=== PATIENT | female | born 1945 ===

== ENCOUNTER 2019-01-31 13:08 | Inpatient (IN) | payer SELFPAY ==
--- NOTE | 2019-01-31 13:17 | Event Note ---
ED Screening Note Date of service: 01/31/19 Time: 13:13 ED Screening Note: This is a 73 y.o. F. that presents to the ER for elevated blood pressure. Patient was at a clinic for medication refills. Patient states the clinic sent her to the ER because her blood pressure is elevated. Admits to blurry vision. Patient off blood pressure medication for several weeks. This initial assessment/diagnostic orders/clinical plan/treatment(s) is/are subject to change based on patients health status, clinical progression and re- assessment by fellow clinical providers in the ED. Further treatment and workup at subsequent clinical providers discretion. Patient/guardian urged not to elope from the ED as their condition may be serious if not clinically assessed and managed. Initial orders include: Labs
[2019-01-31 13:52] LABS: Basophils # (Auto) 0.1 K/mm3 (0.0-0.1); Eosinophils # (Auto) 0.2 K/mm3 (0.0-0.4); Eosinophils % (Auto) 2.2 % (0.0-4.3); Hematocrit 39.1 % (30.3-42.9); Hemoglobin 13.1 gm/dl (10.1-14.3); Lymphocytes # (Auto) 2.8 K/mm3 (1.2-5.4); Lymphocytes % (Auto) 28.6 % (13.4-35.0); Mean Corpuscular HGB Conc 33 % (30-34); Mean Corpuscular Volume 95 fl (79-97); Monocytes # (Auto) 0.7 K/mm3 (0.0-0.8); Monocytes % (Auto) 7.5 % (0.0-7.3); Platelet Count 196 K/mm3 (140-440); Red Blood Count 4.12 M/mm3 (3.65-5.03); Red Cell Distribution Width 13.9 % (13.2-15.2)
[2019-01-31 13:58] LABS: Calcium 9.1 mg/dL (8.4-10.2)
--- NOTE | 2019-01-31 17:13 | XRay Report ---
CHEST 2 VIEWS INDICATION / CLINICAL INFORMATION: chest pain. Dizziness COMPARISON: None available. FINDINGS: SUPPORT DEVICES: None. HEART / MEDIASTINUM: No significant abnormality. LUNGS / PLEURA: No significant pulmonary or pleural abnormality. No pneumothorax. ADDITIONAL FINDINGS: No significant additional findings. IMPRESSION: 1. No acute findings. Signer Name: Fabio Cobb MD Signed: 01/31/2019 5:09 PM Workstation Name: [id number]
[2019-01-31] MEDS ORDERED: APRESOLINE IV ONE (19:10)
--- NOTE | 2019-01-31 19:15 | Emergency Department Report ---
ED Dizziness HPI - General Chief Complaint: Dizziness Stated Complaint: HBP Time Seen by Provider: 01/31/19 13:13 Source: patient Mode of arrival: Ambulatory Limitations: No Limitations - History of Present Illness Initial Comments: 73-year-old female with history of hypertension presents to ED with elevated blood pressure and dizziness. Patient states she has been compliant with her blood pressure medications, clonidine and furosemide. Patient reports she took her last pill today. Went to doctor's appointment today, and reported dizziness and also chest pressure. Patient was advised to come to the ER for further evaluation. Patient denies headache, reports some blurred vision. States chest pain is currently improved. Reports nausea, no vomiting. Denies shortness of breath. Denies any lower extremity swelling. Patient denies history of CHF, unsure why she is taking Lasix. Complaint: dizziness, lightheadedness -: This morning Timing: intermittent Description: lightheadedness Severity: moderate Improves With: nothing Worsens With: nothing Associated Symptoms: chest pain - Related Data Allergies Allergy/AdvReac Type Severity Reaction Status Date / Time No Known Allergies Allergy Verified 01/31/19 20:29 ED Review of Systems ROS: Stated complaint: HBP Other details as noted in HPI Comment: All other systems reviewed and negative Eyes: other (reports blurred vision) Respiratory: denies: shortness of breath Cardiovascular: chest pain Gastrointestinal: nausea. denies: vomiting Musculoskeletal: other (denies leg pain or swelling) Neurological: other (reports dizziness). denies: headache ED Past Medical Hx - Social History Smoking Status: Never Smoker Substance Use Type: Alcohol ED Physical Exam - General Limitations: No Limitations General appearance: alert, in no apparent distress - Head Head exam: Present: atraumatic, normocephalic - Eye Eye exam: Present: normal appearance, PERRL, EOMI - ENT ENT exam: Present: mucous membranes moist - Neck Neck exam: Present: normal inspection, full ROM - Respiratory Respiratory exam: Present: normal lung sounds bilaterally. Absent: respiratory distress - Cardiovascular Cardiovascular Exam: Present: regular rate, normal rhythm - GI/Abdominal GI/Abdominal exam: Present: soft. Absent: distended, tenderness - Extremities Exam Extremities exam: Present: normal inspection - Neurological Exam Neurological exam: Present: alert, oriented X3, CN II-XII intact. Absent: motor sensory deficit - Psychiatric Psychiatric exam: Present: normal affect, normal mood - Skin Skin exam: Present: warm, dry, intact, normal color ED Course Vital Signs 01/31/19 01/31/19 01/31/19 13:13 16:23 18:53 Temperature 98.3 F 97.4 F L 98.6 F Pulse Rate 73 70 71 Respiratory 18 22 18 Rate Blood Pressure 240/82 239/90 Blood Pressure 258/97 [Left] O2 Sat by Pulse 100 100 Oximetry 01/31/19 01/31/19 01/31/19 19:19 19:30 20:00 Temperature Pulse Rate 88 69 89 Respiratory 17 21 19 Rate Blood Pressure 259/92 168/62 Blood Pressure [Left] O2 Sat by Pulse Oximetry 01/31/19 01/31/19 01/31/19 20:30 21:00 21:30 Temperature Pulse Rate 85 83 83 Respiratory 17 22 17 Rate Blood Pressure 176/60 176/58 177/59 Blood Pressure [Left] O2 Sat by Pulse Oximetry ED Medical Decision Making - Lab Data Result diagrams: 01/31/19 13:25 01/31/19 13:25 - EKG Data -: EKG Interpreted by [place] EKG shows normal: sinus rhythm, axis, intervals, QRS complexes Rate: normal - EKG Data Interpretation: nonspecific ST-T wave serge - Radiology Data Radiology results: report reviewed, image reviewed - Medical Decision Making 73-year-old female with uncontrolled hypertension, dizzines and chest pain. Hydralazine given, BP improved. EKG shows nonspecific changes, troponin normal. CT Head normal. Will admit to hospitalist for further management. - Differential Diagnosis ACS, CVA, HTN emergency Critical Care Time: Yes Critical care time in (mins) excluding proc time.: 35 Critical care attestation.: If time is entered above; I have spent that time in minutes in the direct care of this critically ill patient, excluding procedure time. Critical Care Time: 35 minutes ED Disposition Clinical Impression: Acute chest pain, Hypertensive emergency Disposition: DC-[id number] OP ADMIT IP TO THIS HOSP Is pt being admited?: Yes Condition: Stable Time of Disposition: 20:17
--- NOTE | 2019-01-31 19:38 | Cat Scan Report ---
CT head without contrast CLINICAL HISTORY: Dizziness FINDINGS: There are small foci of calcification within the basal ganglia. The brain otherwise appears to demonstrate appropriate attenuation for age. There is no clear CT evidence of acute intracranial hemorrhage or significant mass effect. There is mild cerebral atrophy. The ventricular system is rosmery espondingly appropriate in size and configuration. The visualized paranasal sinuses are clear. All CT scans at this location are performed using the CT dose reduction for [employer] by means of automated exp osure control. IMPRESSION: There is no CT evidence of acute intracranial process. Signer Name: Wili Herrmann MD Signed: 01/31/2019 7:33 PM Workstation Name: [id number]
[2019-01-31] MEDS ORDERED: ASPIRIN PO ONE (20:16)
[2019-01-31] MEDS ORDERED: MORPHINE IV PRN (20:19)
[2019-01-31] MEDS ORDERED: SODIUM CHLORIDE FLUSH SYRINGE 10 ML IV PRN ×2 (20:19→20:24)
[2019-01-31] MEDS ORDERED: DILAUDID IV PRN (20:19)
[2019-01-31] MEDS ORDERED: ZOFRAN IV ONE (20:19)
[2019-01-31] MEDS ORDERED: ZOFRAN IV PRN (20:19)
[2019-01-31] MEDS ORDERED: TYLENOL PO PRN (20:19)
[2019-01-31] MEDS ORDERED: NORVASC PO ONE (20:22)
[2019-01-31] MEDS ORDERED: NITROSTAT SL PRN (20:24)
[2019-01-31 21:30] LABS: Chol/HDL Ratio 2.95 %
[2019-01-31] MEDS: SODIUM CHLORIDE FLUSH SYRINGE 10 ML IV SCH (22:10)
--- NOTE | 2019-01-31 22:16 | History and Physical Report ---
<DELVIN FRENCH - Last Filed: 01/31/19 22:16> History of Present Illness Date of examination: 01/31/19 Date of admission: 01/31/19 20:19 Chief complaint: Hypertensive urgency, dizziness, blurred vision, and chest pain History of present illness: 73-year-old Macanese-speaking female with history of hypertension presents to [facility] ED as a referral from her PCP for elevated blood pressure. Patient's daughter is present at bedside. Patient requested that her daughter interprets and assist in providing history. Patient went to her PCP this morning and with complaints of chest pressure and dizziness. She was found to have a systolic b lood pressure greater than 200 and referred to ED for further evaluation and treatment. On presentation to ED patient was found to be in hypertensive urgency with BP 240/82. She was given IV antihypertensive and was responsive. Patient complains of chest pain which she describes as chest pressure it is substernal with radiation to back. She rates it 8/10. Her chest pain was associated with nausea. Admits to: Lightheadedness, dizziness, blurred vision, nausea, emesis 1 Denies: Diarrhea, fever, headache, cough, hemoptysis, hematemesis, or gait dysfunction Past History Past Medical History: hypertension Past Surgical History: No surgical history Social history: lives with family Family history: no significant family history Medications and Allergies Allergies Allergy/AdvReac Type Severity Reaction Status Date / Time No Known Allergies Allergy Verified 01/31/19 20:29 Active Meds: Active Medications Acetaminophen (Tylenol) 650 mg PO Q4H PRN PRN Reason: Pain MILD(1-3)/Fever >100.5/MARQUEZ Aspirin (Baby Aspirin) 81 mg PO QDAY [facility] Atorvastatin Calcium (Lipitor) 20 mg PO QHS KAYLEE Clonidine HCl (Catapres) 0.2 mg PO DAILY [facility] Docusate Sodium (Colace) 100 mg PO BID [facility] Enoxaparin Sodium (Lovenox) 40 mg SUB-Q QDAY [facility] Hydralazine HCl (Apresoline) 10 mg IV Q4HR PRN PRN Reason: Blood Pressure Hydromorphone HCl (Dilaudid) 0.5 mg IV Q3H PRN PRN Reason: Pain , Severe (7-10) Morphine Sulfate (Morphine) 2 mg IV Q4H PRN PRN Reason: Pain, Moderate (4-6) Nitroglycerin (Nitrostat) 0.4 mg SL Q5M PRN PRN Reason: Chest Pain Ondansetron HCl (Zofran) 4 mg IV Q8H PRN PRN Reason: Nausea And Vomiting Sodium Chloride (Sodium Chloride Flush Syringe 10 Ml) 10 ml IV BID KAYLEE Sodium Chloride (Sodium Chloride Flush Syringe 10 Ml) 10 ml IV PRN PRN PRN Reason: LINE FLUSH Sodium Chloride (Sodium Chloride Flush Syringe 10 Ml) 10 ml IV PRN PRN PRN Reason: LINE FLUSH Review of Systems All systems: negative Eyes: bilateral: blurred vision Cardiovascular: chest pain, lightheadedness Gastrointestinal: nausea Neurological: other (dizziness) Exam - Physical Exam Narrative exam: Physical exam General appearance: Present: No acute distress, alert and oriented 3, Macanese- speaking, well-developed, well-nourished, older adult female - EENT Eyes: Present: PERRL, EOM ENT: hearing intact, normal dentition - Neck Neck: Present: supple, normal ROM - Respiratory Respiratory effort: Non-labored Respiratory: CTA bilaterally - Cardiovascular Heart rate: 73 (bpm) Rhythm: ST Heart Sounds: Present: S1 & S2. Absent: rub, click - Extremities Extremities: no ischemia, pulses intact - Peripheral Assessment Peripheral Pulses: within normal limits - Abdominal General gastrointestinal: soft, non-tender, normal bowel sounds - Integumentary Integumentary: Present: warm, dry - Musculoskeletal Musculoskeletal: Normal gait -Neurological Neurological: CN II-XII grossly intact - Psychiatric Psychiatric: cooperative - Constitutional Vitals: Temp Pulse Resp BP Pulse Ox 98.6 F 83 17 177/59 100 01/31/19 18:53 01/31/19 21:30 01/31/19 21:30 01/31/19 21:30 01/31/19 18:53 Results - Labs CBC & Chem 7: 01/31/19 13:25 01/31/19 13:25 Labs: Laboratory Last Values WBC 9.9 K/mm3 (4.5-11.0) 01/31/19 13:25 RBC 4.12 M/mm3 (3.65-5.03) 01/31/19 13:25 Hgb 13.1 gm/dl (10.1-14.3) 01/31/19 13:25 Hct 39.1 % (30.3-42.9) 01/31/19 13:25 MCV 95 fl (79-97) 01/31/19 13:25 MCH 32 pg (28-32) 01/31/19 13:25 MCHC 33 % (30-34) 01/31/19 13:25 RDW 13.9 % (13.2-15.2) 01/31/19 13:25 Plt Count 196 K/mm3 (140-440) 01/31/19 13:25 Lymph % (Auto) 28.6 % (13.4-35.0) 01/31/19 13:25 [place] % (Auto) 7.5 % (0.0-7.3) H 01/31/19 13:25 Eos % (Auto) 2.2 % (0.0-4.3) 01/31/19 13:25 Baso % (Auto) 1.0 % (0.0-1.8) 01/31/19 13:25 Lymph # 2.8 K/mm3 (1.2-5.4) 01/31/19 13:25 [place] # 0.7 K/mm3 (0.0-0.8) 01/31/19 13:25 Eos # 0.2 K/mm3 (0.0-0.4) 01/31/19 13:25 Baso # 0.1 K/mm3 (0.0-0.1) 01/31/19 13:25 Seg Neutrophils % 60.7 % (40.0-70.0) 01/31/19 13:25 Seg Neutrophils # 6.0 K/mm3 (1.8-7.7) 01/31/19 13:25 Sodium 141 mmol/L (137-145) 01/31/19 13:25 Potassium 4.1 mmol/L (3.6-5.0) 01/31/19 13:25 Chloride 102.4 mmol/L (98-107) 01/31/19 13:25 Carbon Dioxide 27 mmol/L (22-30) 01/31/19 13:25 16 mmol/L 01/31/19 13:25 BUN 18 mg/dL (7-17) H 01/31/19 13:25 1.0 mg/dL (0.7-1.2) 09/13/19 13:25 Estimated GFR 55 ml/min 01/31/19 13:25 18 % 01/31/19 13:25 Glucose 96 mg/dL (65-100) 01/31/19 13:25 Calcium 9.1 mg/dL (8.4-10.2) 01/31/19 13:25 < 0.010 ng/mL (0.00-0.029) 01/31/19 19:28 Triglycerides 150 mg/dL (2-149) H 01/31/19 20:28 Cholesterol 216 mg/dL (50-199) H 01/31/19 20:28 141 mg/dL (50-130) H 01/31/19 20:28 73 mg/dL (40-59) H 01/31/19 20:28 2.95 % 01/31/19 20:28 - Imaging and Cardiology Imaging and Cardiology: CT Head: FINDINGS: There are small foci of calcification within the basal ganglia. The brain otherwise appears to demonstrate appropriate attenuation for age. There is no clear CT evidence of acute intracranial hemorrhage or significant mass effect. There is mild cerebral atrophy. The ventricular system is correspondingly appropriate in size and configuration. The visualized paranasal sinuses are clear. All CT scans at this location are performed using the CT dose reduction for [employer] by means of automated exposure control. IMPRESSION: There is no CT evidence of acute intracranial process. CXR: FINDINGS: SUPPORT DEVICES: None. HEART / MEDIASTINUM: No significant abnormality. LUNGS / PLEURA: No significant pulmonary or pleural abnormality. No pneumothorax. ADDITIONAL FINDINGS: No significant additional findings. IMPRESSION: 1. No acute findings. Assessment and Plan Assessment and plan: 73-year-old Macanese-speaking female with history of hypertension presents to [facility] ED as a referral from her PCP for elevated blood pressure. Hypertensive urgency -BP on admission 240/82 -Hx Hypertension compliant with meds -Continue to monitor BP -Continue clonidine 0.2 mg daily -IV hydralazine when necessary Acute Chest Pain -Likely secondary to coronary vasospasm -Initiate chest pain protocol -Continuous telemetry monitoring -Continue supportive care -Pain mgmt -Treadmill stress test pending -Troponin negative 1 x 1, will continue to trend -Start ASA and Statin - Will consult cardiology if stress test positive HLD -Total cholesterol 216, LDL 141 -On Statin -Low fat diet DVT PPX -On Lovenox Advance Directives: No VTE prophylaxis?: Chemical Plan of care discussed with patient/family: Yes <TAVO HWANG - Last Filed: 02/01/19 06:12> History of Present Illness Date of admission: 01/31/19 20:19 Medications and Allergies Active Meds: Active Medications Acetaminophen (Tylenol) 650 mg PO Q4H PRN PRN Reason: Pain MILD(1-3)/Fever >100.5/MARQUEZ Aspirin (Baby Aspirin) 81 mg PO QDAY [facility] Atorvastatin Calcium (Lipitor) 20 mg PO QHS [facility] Last Admin: 02/01/19 00:49 Dose: 20 mg Documented by: Clonidine HCl (Catapres) 0.2 mg PO DAILY [facility] Docusate Sodium (Colace) 100 mg PO BID [facility] Last Admin: 02/01/19 00:50 Dose: 100 mg Documented by: Enoxaparin Sodium (Lovenox) 40 mg SUB-Q QDAY [facility] Hydralazine HCl (Apresoline) 10 mg IV Q4HR PRN PRN Reason: Blood Pressure Last Admin: 01/31/19 22:43 Dose: 10 mg Documented by: Hydromorphone HCl (Dilaudid) 0.5 mg IV Q3H PRN PRN Reason: Pain , Severe (7-10) Morphine Sulfate (Morphine) 2 mg IV Q4H PRN PRN Reason: Pain, Moderate (4-6) Last Admin: 01/31/19 23:12 Dose: 2 mg Documented by: Nitroglycerin (Nitrostat) 0.4 mg SL Q5M PRN PRN Reason: Chest Pain Ondansetron HCl (Zofran) 4 mg IV Q8H PRN PRN Reason: Nausea And Vomiting Last Admin: 01/31/19 23:12 Dose: 4 mg Documented by: Sodium Chloride (Sodium Chloride Flush Syringe 10 Ml) 10 ml IV BID [facility] Last Admin: 01/31/19 22:10 Dose: 10 ml Documented by: Sodium Chloride (Sodium Chloride Flush Syringe 10 Ml) 10 ml IV PRN PRN PRN Reason: LINE FLUSH Sodium Chloride (Sodium Chloride Flush Syringe 10 Ml) 10 ml IV PRN PRN PRN Reason: LINE FLUSH Exam - Constitutional Vitals: Temp Pulse Resp BP Pulse Ox 99.0 F 85 16 179/76 96 02/01/19 05:03 02/01/19 05:02 02/01/19 05:02 02/01/19 05:02 02/01/19 05:02 Results - Labs CBC & Chem 7: 02/01/19 03:58 02/01/19 03:58 Labs: Laboratory Last Values WBC 11.4 K/mm3 (4.5-11.0) H 02/01/19 03:58 RBC 4.18 M/mm3 (3.65-5.03) 02/01/19 03:58 Hgb 12.9 gm/dl (10.1-14.3) 02/01/19 03:58 Hct 39.4 % (30.3-42.9) 02/01/19 03:58 MCV 94 fl (79-97) 02/01/19 03:58 MCH 31 pg (28-32) 02/01/19 03:58 MCHC 33 % (30-34) 02/01/19 03:58 RDW 13.6 % (13.2-15.2) 02/01/19 03:58 Plt Count 211 K/mm3 (140-440) 02/01/19 03:58 Lymph % (Auto) 14.3 % (13.4-35.0) 02/01/19 03:58 Fre[place] % (Auto) 3.2 % (0.0-7.3) 02/01/19 03:58 Eos % (Auto) 0.0 % (0.0-4.3) 02/01/19 03:58 Baso % (Auto) 0.5 % (0.0-1.8) 02/01/19 03:58 Lymph # 1.6 K/mm3 (1.2-5.4) 02/01/19 03:58 [place] # 0.4 K/mm3 (0.0-0.8) 02/01/19 03:58 Eos # 0.0 K/mm3 (0.0-0.4) 02/01/19 03:58 Baso # 0.1 K/mm3 (0.0-0.1) 02/01/19 03:58 Seg Neutrophils % 82.0 % (40.0-70.0) H 02/01/19 03:58 Seg Neutrophils # 9.3 K/mm3 (1.8-7.7) H 02/01/19 03:58 Sodium 140 mmol/L (137-145) 02/01/19 03:58 Potassium 5.3 mmol/L (3.6-5.0) H D 02/01/19 03:58 Chloride 101.8 mmol/L (98-107) 02/01/19 03:58 Carbon Dioxide 25 mmol/L (22-30) 02/01/19 03:58 19 mmol/L 02/01/19 03:58 BUN 17 mg/dL (7-17) 02/01/19 03:58 0.9 mg/dL (0.7-1.2) 02/01/19 03:58 Estimated GFR > 60 ml/min 02/01/19 03:58 19 % 02/01/19 03:58 Glucose 124 mg/dL (65-100) H 02/01/19 03:58 Calcium 9.4 mg/dL (8.4-10.2) 02/01/19 03:58 < 0.010 ng/mL (0.00-0.029) 02/01/19 03:58 Triglycerides 150 mg/dL (2-149) H 01/31/19 20:28 Cholesterol 216 mg/dL (50-199) H 01/31/19 20:28 141 mg/dL (50-130) H 01/31/19 20:28 73 mg/dL (40-59) H 01/31/19 20:28 2.95 % 01/31/19 20:28 Assessment and Plan Assessment and plan: patient seen and examined. 73 year old woman with hypertension, compliant with medications was sent from PMD'd office for evaluation. She developed chest pain in the ER. Agree with plan as stated above
[2019-01-31] MEDS ORDERED: APRESOLINE ONE (22:26)
[2019-01-31] MEDS: APRESOLINE IV PRN (22:43)
[2019-02-01] MEDS: COLACE PO SCH ×3 (00:50→21:10)
[2019-02-01 04:51] LABS: Basophils # (Auto) 0.1 K/mm3 (0.0-0.1); Basophils % (Auto) 0.5 % (0.0-1.8); Hematocrit 39.4 % (30.3-42.9); Hemoglobin 12.9 gm/dl (10.1-14.3); Lymphocytes # (Auto) 1.6 K/mm3 (1.2-5.4); Lymphocytes % (Auto) 14.3 % (13.4-35.0); Mean Corpuscular HGB Conc 33 % (30-34); Mean Corpuscular Volume 94 fl (79-97); Monocytes # (Auto) 0.4 K/mm3 (0.0-0.8); Monocytes % (Auto) 3.2 % (0.0-7.3); Platelet Count 211 K/mm3 (140-440); Red Blood Count 4.18 M/mm3 (3.65-5.03); Red Cell Distribution Width 13.6 % (13.2-15.2)
[2019-02-01 05:14] LABS: BUN/Creatinine Ratio 19; Blood Urea Nitrogen 17 mg/dL (7-17); Calcium 9.4 mg/dL (8.4-10.2); Hemolysis Index 8
[2019-02-01] MEDS ORDERED: KIONEX PO ONE (06:43)
[2019-02-01] MEDS ORDERED: LEXISCAN IV ONE ×2 (07:55→08:09)
[2019-02-01] MEDS: APRESOLINE IV PRN (08:29)
--- NOTE | 2019-02-01 09:38 | Progress Note ---
Assessment and Plan Assessment and plan: 73-year-old Wolof-speaking female with history of hypertension presents to [facility] ED as a referral from her PCP for elevated blood pressure. 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 Cardiology evaluation and recommendations noted and appreciated The patient had stress test pending report Chest x-ray negative, continue current cardiac medications --Dyslipidemia ;Continue statin, low cholesterol diet, exercise as tolerated --DVT PPX; On Lovenox Closely monitor the patient and adjust management as needed Follow stress test report, monitor blood pressures If stable by discharge the patient tomorrow Closely observe and monitor blood pressures overnight History Interval history: Patient seen and examined medical records reviewed Admitted with hypertensive emergency and chest pain Evaluated by cardiology, patient underwent stress test awaiting report Patient feels slightly better, Blood pressures remain uncontrolled Alert awake oriented 3 Vital signs reviewed Hospitalist Physical - Constitutional Vitals: Temp Pulse Resp BP Pulse Ox 98.5 F 82 14 204/72 97 02/01/19 08:18 02/01/19 08:29 02/01/19 08:18 02/01/19 08:29 02/01/19 08:18 General appearance: Present: no acute distress, well-nourished - EENT Eyes: Present: PERRL, EOM intact - Neck Neck: Present: supple, normal ROM - Respiratory Respiratory effort: normal Respiratory: negative: rales, rhonchi, wheezing - Cardiovascular Rhythm: regular Heart Sounds: Present: S1 & S2 - Extremities Extremities: no ischemia, No edema - Abdominal General gastrointestinal: soft, non-tender, non-distended, normal bowel sounds - Integumentary Integumentary: Present: clear, warm - Psychiatric Psychiatric: appropriate mood/affect, cooperative - Neurologic Neurologic: CNII-XII intact, moves all extremities Results - Labs CBC & Chem 7: 02/01/19 03:58 02/01/19 03:58 Labs: Laboratory Last Values WBC 11.4 K/mm3 (4.5-11.0) H 02/01/19 03:58 RBC 4.18 M/mm3 (3.65-5.03) 02/01/19 03:58 Hgb 12.9 gm/dl (10.1-14.3) 02/01/19 03:58 Hct 39.4 % (30.3-42.9) 02/01/19 03:58 MCV 94 fl (79-97) 02/01/19 03:58 MCH 31 pg (28-32) 02/01/19 03:58 MCHC 33 % (30-34) 02/01/19 03:58 RDW 13.6 % (13.2-15.2) 02/01/19 03:58 Plt Count 211 K/mm3 (140-440) 02/01/19 03:58 Lymph % (Auto) 14.3 % (13.4-35.0) 02/01/19 03:58 [place] % (Auto) 3.2 % (0.0-7.3) 02/01/19 03:58 Eos % (Auto) 0.0 % (0.0-4.3) 02/01/19 03:58 Baso % (Auto) 0.5 % (0.0-1.8) 02/01/19 03:58 Lymph # 1.6 K/mm3 (1.2-5.4) 02/01/19 03:58 [place] # 0.4 K/mm3 (0.0-0.8) 02/01/19 03:58 Eos # 0.0 K/mm3 (0.0-0.4) 02/01/19 03:58 Baso # 0.1 K/mm3 (0.0-0.1) 02/01/19 03:58 Seg Neutrophils % 82.0 % (40.0-70.0) H 02/01/19 03:58 Seg Neutrophils # 9.3 K/mm3 (1.8-7.7) H 02/01/19 03:58 Sodium 140 mmol/L (137-145) 02/01/19 03:58 Potassium 5.3 mmol/L (3.6-5.0) H D 02/01/19 03:58 Chloride 101.8 mmol/L (98-107) 02/01/19 03:58 Carbon Dioxide 25 mmol/L (22-30) 02/01/19 03:58 19 mmol/L 02/01/19 03:58 BUN 17 mg/dL (7-17) 02/01/19 03:58 0.9 mg/dL (0.7-1.2) 02/01/19 03:58 Estimated GFR > 60 ml/min 02/01/19 03:58 19 % 02/01/19 03:58 Glucose 124 mg/dL (65-100) H 02/01/19 03:58 Calcium 9.4 mg/dL (8.4-10.2) 02/01/19 03:58 < 0.010 ng/mL (0.00-0.029) 02/01/19 03:58 Triglycerides 150 mg/dL (2-149) H 01/31/19 20:28 Cholesterol 216 mg/dL (50-199) H 01/31/19 20:28 141 mg/dL (50-130) H 01/31/19 20:28 73 mg/dL (40-59) H 01/31/19 20:28 2.95 % 01/31/19 20:28 Active Medications - Current Medications Current Medications: Generic Name Dose Route Start Last Admin Trade Name Freq PRN Reason Stop Dose Admin Acetaminophen 650 mg 01/31/19 20:19 Tylenol PO Q4H PRN Pain MILD(1-3)/Fever >100.5/MARQUEZ Aspirin 81 mg 02/01/19 10:00 Baby Aspirin PO QDAY [facility] Atorvastatin Calcium 20 mg 01/31/19 22:00 02/01/19 00:49 Lipitor PO 20 mg QHS KAYLEE Administration Clonidine HCl 0.2 mg 02/01/19 10:00 Catapres PO DAILY [facility] Docusate Sodium 100 mg 01/31/19 22:00 02/01/19 00:50 Colace PO 100 mg BID KAYLEE Administration Enoxaparin Sodium 40 mg 02/01/19 10:00 Lovenox SUB-Q QDAY [facility] Hydralazine HCl 10 mg 01/31/19 20:22 02/01/19 08:29 Apresoline IV 10 mg Q4HR PRN Administration Blood Pressure Hydromorphone HCl 0.5 mg 01/31/19 20:19 Dilaudid IV Q3H PRN Pain , Severe (7-10) Morphine Sulfate 2 mg 01/31/19 20:19 01/31/19 23:12 Morphine IV 2 mg Q4H PRN Administration Pain, Moderate (4-6) Nitroglycerin 0.4 mg 01/31/19 20:24 Nitrostat SL Q5M PRN Chest Pain Ondansetron HCl 4 mg 01/31/19 20:19 01/31/19 23:12 Zofran IV 4 mg Q8H PRN Administration Nausea And Vomiting Sodium Chloride 10 ml 01/31/19 22:00 01/31/19 22:10 Sodium Chloride Flush Syringe 10 Ml IV 10 ml BID KAYLEE Administration Sodium Chloride 10 ml 01/31/19 20:19 Sodium Chloride Flush Syringe 10 Ml IV PRN PRN LINE FLUSH Sodium Chloride 10 ml 01/31/19 20:24 Sodium Chloride Flush Syringe 10 Ml IV PRN PRN LINE FLUSH
[2019-02-01] MEDS ORDERED: TYLENOL ONE (10:17)
--- NOTE | 2019-02-01 10:56 | Consultation ---
History of Present Illness Consult date: 02/01/19 Consult reason: other (palpitations, abnormal EKG) History of present illness: Ms. Yi Carcamo is a 73 y/o female with a history of hypertension who presented with [facility] with elevated BP, chest pressure and palpitations. She is not known to our practice. In the ED, her pressure was found to be 240/82, and she had chest pressure described as substernal and radiation to the back and head. She also reports palpitations. Her EKG was notable for ischemia, troponins negative x3. Stress test done on 02/01/2019 negative for ischemia and infarction. Past History Past Medical History: hypertension Past Surgical History: No surgical history Social history: lives with family Family history: no significant family history Medications and Allergies Allergies Allergy/AdvReac Type Severity Reaction Status Date / Time No Known Allergies Allergy Verified 01/31/19 20:29 Active Meds: Active Medications Acetaminophen (Tylenol) 650 mg PO Q4H PRN PRN Reason: Pain MILD(1-3)/Fever >100.5/MARQUEZ Last Admin: 02/01/19 10:18 Dose: 650 mg Documented by: Aspirin (Baby Aspirin) 81 mg PO QDAY [facility] Atorvastatin Calcium (Lipitor) 20 mg PO QHS [facility] Last Admin: 02/01/19 00:49 Dose: 20 mg Documented by: Clonidine HCl (Catapres) 0.2 mg PO DAILY [facility] Docusate Sodium (Colace) 100 mg PO BID [facility] Last Admin: 02/01/19 00:50 Dose: 100 mg Documented by: Enoxaparin Sodium (Lovenox) 40 mg SUB-Q QDAY [facility] Hydralazine HCl (Apresoline) 10 mg IV Q4HR PRN PRN Reason: Blood Pressure Last Admin: 02/01/19 08:29 Dose: 10 mg Documented by: Hydromorphone HCl (Dilaudid) 0.5 mg IV Q3H PRN PRN Reason: Pain , Severe (7-10) Morphine Sulfate (Morphine) 2 mg IV Q4H PRN PRN Reason: Pain, Moderate (4-6) Last Admin: 01/31/19 23:12 Dose: 2 mg Documented by: Nitroglycerin (Nitrostat) 0.4 mg SL Q5M PRN PRN Reason: Chest Pain Ondansetron HCl (Zofran) 4 mg IV Q8H PRN PRN Reason: Nausea And Vomiting Last Admin: 01/31/19 23:12 Dose: 4 mg Documented by: Sodium Chloride (Sodium Chloride Flush Syringe 10 Ml) 10 ml IV BID KAYLEE Last Admin: 01/31/19 22:10 Dose: 10 ml Documented by: Sodium Chloride (Sodium Chloride Flush Syringe 10 Ml) 10 ml IV PRN PRN PRN Reason: LINE FLUSH Sodium Chloride (Sodium Chloride Flush Syringe 10 Ml) 10 ml IV PRN PRN PRN Reason: LINE FLUSH Review of Systems All systems: negative Cardiovascular: palpitations Neurological: headaches Physical Examination Vital Signs Temp Pulse Resp BP 98.3 F 73 18 240/82 01/31/19 13:13 01/31/19 13:13 01/31/19 13:13 01/31/19 13:13 General appearance: no acute distress HEENT: Positive: PERRL Neck: Positive: neck supple Cardiac: Positive: Reg Rate and Rhythm Lungs: Positive: Normal Exam Neuro: Positive: Grossly Intact Abdomen: Positive: Unremarkable Female genitourinary: deferred Skin: Positive: Clear Musculoskeletal: No Pain Extremities: Present: normal Results 02/01/19 03:58 02/01/19 03:58 Lipids 01/31/19 Range/Units 20:28 Triglycerides 150 H (2-149) mg/dL Cholesterol 216 H (50-199) mg/dL HDL Cholesterol 73 H (40-59) mg/dL Cholesterol/HDL Ratio 2.95 % CBC 01/31/19 02/01/19 Range/Units 13:25 03:58 WBC 9.9 11.4 H (4.5-11.0) K/mm3 RBC 4.12 4.18 (3.65-5.03) M/mm3 Hgb 13.1 12.9 (10.1-14.3) gm/dl Hct 39.1 39.4 (30.3-42.9) % Plt Count 196 211 (140-440) K/mm3 Lymph # 2.8 1.6 (1.2-5.4) K/mm3 [place] # 0.7 0.4 (0.0-0.8) K/mm3 Eos # 0.2 0.0 (0.0-0.4) K/mm3 Baso # 0.1 0.1 (0.0-0.1) K/mm3 Comprehensive Metabolic Panel 01/31/19 02/01/19 Range/Units 13:25 03:58 Sodium 141 140 (137-145) mmol/L Potassium 4.1 5.3 H D (3.6-5.0) mmol/L Chloride 102.4 101.8 (98-107) mmol/L Carbon Dioxide 27 25 (22-30) mmol/L BUN 18 H 17 (7-17) mg/dL Creatinine 1.0 0.9 (0.7-1.2) mg/dL Glucose 96 124 H (65-100) mg/dL Calcium 9.1 9.4 (8.4-10.2) mg/dL - Imaging and Cardiology Stress echo: pending Echo: pending - EKG Interpretation EKG: sinus rhythm (with ischemic changes) EKG interpretations - Telemetry EKG Rhythm: Sinus Rhythm Repolarization changes or abnormalities: ST or T wave suggestive of ischemia Assessment and Plan Ms. Yi Carcamo is a 73 y/o female with a history of hypertension who presented with hypertensive emergency, chest pressure and palpitations. EKG suggestive of ischemia. Stress test negative. An echocardiogram is pending. Continue antihypertensives. Further management pending hospital course. The patient has been seen in conjunction with Dr. Verduzco, who agrees with the assessment and plan. - Patient Problems (1) Acute chest pain Current Visit: Yes Status: Acute (2) Hypertensive emergency Current Visit: Yes Status: Acute
--- NOTE | 2019-02-01 12:05 | Treadmill Report ---
MYOCARDIAL PERFUSION IMAGING STUDY Resting myocardial perfusion imaging studies revealed homogeneous radioisotope distribution throughout the myocardium. The patient's left ventricle size is small. Possible left ventricular hypertrophy is noted. Post-Lexiscan scan revealed similar uptake. Ejection fraction was noted to be 89%. This may be an overestimation because of small ventricle size. IMPRESSION: 1. No evidence of ischemia, although the EKG is abnormal. 2. Normal left ventricular systolic function. JOB# [id number] MELI/NTS
[2019-02-01] MEDS: BABY ASPIRIN PO SCH (16:53)
[2019-02-01] MEDS: CATAPRES PO SCH (16:53)
[2019-02-01] MEDS: SODIUM CHLORIDE FLUSH SYRINGE 10 ML IV SCH ×2 (16:54→21:15)
[2019-02-01] MEDS: LOVENOX SUB-Q SCH (16:54)
--- NOTE | 2019-02-01 20:28 | Event Note ---
Date: 02/01/19 Patient's stress test is negative for ischemia, normal ejection fraction However patient's blood pressures are not optimally controlled This patient was admitted with hypertensive emergency, we'll adjust BP meds Closely monitor overnight, DC home tomorrow if stable
[2019-02-02] MEDS: CATAPRES PO SCH (09:43)
[2019-02-02] MEDS: BABY ASPIRIN PO SCH (09:43)
[2019-02-02] MEDS: LOVENOX SUB-Q SCH (09:43)
[2019-02-02] MEDS: COLACE PO SCH (09:43)
[2019-02-02] MEDS: SODIUM CHLORIDE FLUSH SYRINGE 10 ML IV SCH (09:44)
[2019-02-02] MEDS ORDERED: COZAAR PO SCH (10:00)
--- NOTE | 2019-02-02 10:00 | Progress Note ---
Assessment and Plan The patient's cardiac status is stable. Will add losartan for blood pressure optimization. Follow up with Dr. Verduzco in 7-10 days. Call for an appointment. The patient has been seen in conjunction with Dr. Verduzco, who agrees with the assessment and plan. - Patient Problems (1) Acute chest pain Current Visit: Yes Status: Acute (2) Hypertensive emergency Current Visit: Yes Status: Resolved (3) Hypertension Current Visit: Yes Status: Chronic Subjective Date of service: 02/02/19 Interval history: Patient lying in bed in NAD. BP remains elevated, but is improved. Stress test on 02/01/19 negative. Echo reviewed - EF 60 to 65 percent, RVSP 41, posterior mitral annular calcification. Objective Last Vital Signs Temp 98.6 F 02/02/19 08:14 Pulse 84 02/02/19 09:43 Resp 14 02/02/19 08:14 BP 182/70 02/02/19 09:43 Pulse Ox 94 02/02/19 08:14 - Physical Examination General: No Apparent Distress HEENT: Positive: PERRL Neck: Positive: neck supple Cardiac: Positive: Reg Rate and Rhythm Lungs: Positive: Normal Exam Neuro: Positive: Grossly Intact Abdomen: Positive: Unremarkable /Rectal: Other (deferred) Skin: Positive: Clear Musculoskeletal: No Pain Extremities: Present: normal - Imaging and Cardiology Nuclear stress test: report reviewed (02/01/19: negative, normal EF) Echo: report reviewed (02/01/19: EF 60 to 65 percent, RVSP 41, posterior mitral annular calcification) - Telemetry EKG Rhythm: Sinus Rhythm Repolarization changes or abnormalities: ST or T wave suggestive of ischemia
[2019-02-02 11:44] VITALS: BP 135/54
--- NOTE | 2019-02-02 11:48 | Discharge Summary ---
Providers - Providers Date of Admission: 01/31/19 20:19 Date of discharge: 02/02/19 Attending physician: HOMERO GIBBS Primary care physician: [employer] Hospitalization Condition: Stable Disposition: DC-01 TO HOME OR SELFCARE Time spent for discharge: 32 min Core Measure Documentation - Palliative Care Palliative Care/ Comfort Measures: Not Applicable - Core Measures Any of the following diagnoses?: none Exam - Constitutional Vitals: Temp Pulse Resp BP Pulse Ox 98.6 F 84 14 182/70 94 02/02/19 08:14 02/02/19 09:43 02/02/19 08:14 02/02/19 09:43 02/02/19 08:14 General appearance: Present: no acute distress, well-nourished - EENT Eyes: Present: PERRL, EOM intact - Neck Neck: Present: supple, normal ROM - Respiratory Respiratory effort: normal Respiratory: negative: rales, rhonchi, wheezing - Cardiovascular Rhythm: regular Heart Sounds: Present: S1 & S2 - Extremities Extremities: no ischemia, No edema - Abdominal General gastrointestinal: Present: soft, non-tender, non-distended, normal bowel sounds - Integumentary Integumentary: Present: clear, warm - Musculoskeletal Musculoskeletal: strength equal bilaterally - Psychiatric Psychiatric: appropriate mood/affect, cooperative - Neurologic Neurologic: CNII-XII intact, moves all extremities Plan Activity: advance as tolerated, fall precautions Diet: other (cardiac diet) Additional Instructions: Follow up with Dr.K. Issa in 7-10 days. Call for an appointment Follow up with: MARCK HENDERSON MD [Primary Care Provider] - 7 Days JEREMY ISSA MD [Staff Physician] - 7 Days Prescriptions: Aspirin [Aspirin BABY CHEW TAB] 81 mg PO QDAY #30 tab.chew cloNIDine [Catapres] 0.2 mg PO BID #60 tablet Losartan [Cozaar] 25 mg PO QDAY #30 tablet AtorvaSTATin [Lipitor] 20 mg PO QHS #30 tablet
== END 2019-02-02 14:24 | disposition home or self-care (01) | DRG 305 ==
LOC: ED 13:08 → 4A 20:19
PROVIDERS: ADMIT Internal Medicine; ATTEND Internal Medicine
DX: I16.1 Hypertensive emergency (principal); R07.9 Chest pain, unspecified; I10 Essential (primary) hypertension; E78.5 Hyperlipidemia, unspecified
CPT/HCPCS: 36415; 70450; 71046; 78452; 80048; 80061; 84132; 84484; 85025; 93005; 93010; 93017; 93306; 96374; 96375; G0378; A9270-GY; A9502; J0360; J1650; J2270; J2405; J2785